=== PATIENT | male | born 1975 | race Caucasian/White ===

== ENCOUNTER 2024-03-14 06:23 | Outpatient (CLI) | payer BC, SELFPAY ==
--- NOTE | 2024-03-14 08:04 | W.ANESCHARGE ---
Anesthesia Charges Start Date/Time Anesthesia Start Date: 03/14/24 Anesthesia Start Time: 07:17 Stop Date/Time Anesthesia Stop Date: 03/14/24 Anesthesia Stop Time: 08:05
--- NOTE | 2024-03-14 09:47 | W.ANESCHARGE ---
Anesthesia Charges Start Date/Time Anesthesia Start Date: 03/14/24 Anesthesia Start Time: 07:17 Stop Date/Time Anesthesia Stop Date: 03/14/24 Anesthesia Stop Time: 08:05
== END 2024-03-14 06:24 | disposition home or self-care (01) ==
PROVIDERS: PCP Family Medicine; Visit Provider Internal Medicine Gastroenterology
DX: K50.10 Crohn's disease of large intestine without complications (principal); K51.40 Inflammatory polyps of colon without complications
CPT/HCPCS: 00811; 45380; 88305; J2704